=== PATIENT | female | born 1975 | race Caucasian/White ===

== ENCOUNTER 2016-07-10 12:32 | Emergency (ER) | payer OTHER ==
[~2016-07-10] VITALS: Wt 90.2 kg
[~2016-07-10 12:32] MED LIST: ACET1TAB40 PO; AZIT250T94 PO; BIRTH CONTROL PILL; BISM262O23 PO; CYCL-319 PO; FAMO-18 PO; FIORICET PO; HYDR-3498 PO; IBUP-1542 PO; OSLT75C PO; TAP5; TRAM50TA2 PO; UDROBDM PO
[2016-07-10] MEDS ORDERED: HYDROCODONE/APAP (5/325) TAB PO ONE (14:30)
[2016-07-10] MEDS ORDERED: TETRACAINE 0.5% 15 ML OPH LEFT EYE ONE (14:30)
[2016-07-10] MEDS ORDERED: TRAM50TA2 PO (14:42)
--- NOTE | 2016-07-10 14:42 | ERD ---
ER Documentation Chief Complaint Date/Time DATE: 07/10/16 TIME: 14:34 Chief Complaint left eye pain for 3 days and left side face pain. non deficit. no trauma HPI This is a 41-year-old female that presents to the ER with multiple complaints. Patient is stating that for the last 3 days she has had a left-sided facial pain. Facial pain is described as pressure-like and it is worse whenever she bends forward. She does admits to facial tingling. Patient also complained of left eyeball pain. She denies any eye trauma. She denies any eye redness or discharge. Patient states that she does have some blurry vision in the left eye. She denies any vision loss, halos, flashing lights in her vision. Patient denies any fever or chills. Patient denies any recent cough or cold symptoms. ROS 12 point review of systems was done, all negative except per HPI. Medications Home Meds Active Scripts Famotidine* (Pepcid*) 20 Mg Tablet, 20 MG PO BID for 10 Days, #20 TAB Prov:COREY COMER MD 01/18/16 Bismuth Subsalicylate* (Pepto-Bismol*) 262 Mg/15 Ml Oral.susp, 15 ML PO Q3H Y for DIARRHEA for 5 Days, ML Prov:COREY COMER MD 01/18/16 Acetaminophen with Codeine (Acetaminophen-Cod #3 Tablet) 1 Each Tablet, 1 TAB PO Q6H, #12 TAB Prov:COREY COMER MD 01/18/16 Azithromycin* (Zithromax*) 250 Mg Tablet, 250 MG PO .PorfirioPACK DIRECTED, #6 TAB TAKE 500 MG (2 TABS) THE FIRST DAY THEN 250 MG (1 TAB) DAYS 2-5 Prov:COREY COMER MD 01/18/16 Acetamin/Butalbital/Caffeine* (Fioricet*) 1 Tab Tab, 1 TAB PO Q4H Y for PAIN LEVEL 1-5, #15 TAB Prov:ELIANE ESCOBAR PA-C 12/27/15 Guaifenesin-Dextromethorphan* (Robitussin* DM) 100MG/10MG/5ML Syrup, 10 ML PO Q4H Y for COUGH for 5 Days, ML Prov:MICHELLE RODARTE SAWMILL SUPERVISOR 07/08/15 Oseltamivir Phosphate* (Tamiflu*) 75 Mg Capsule, 75 MG PO DAILY for 5 Days, CAP Prov:MICHELLE RODARTE SAWMILL SUPERVISOR 07/08/15 Ibuprofen* (Motrin*) 600 Mg Tab, 600 MG PO Q8, #10 TAB Prov:SANJAY DURON DO 05/30/15 Hydrocodone Bit-Acetaminophen* ([place]*) 5-325 Mg Tab, 1 TAB PO Q6 Y for PAIN, # 7 TAB Prov:DOMISANJAY DO 05/30/15 Cyclobenzaprine Hcl* (Cyclobenzaprine Hcl*) 10 Mg Tablet, 10 MG PO TID, #20 TAB Prov:COREY COMER MD 10/19/14 Ibuprofen* (Ibuprofen*) 600 Mg Tablet, 600 MG PO Q6H Y for PAIN AND OR ELEVATED TEMP, #30 Prov:COREY COMER MD 10/19/14 Tramadol HCl (Tramadol HCl) 50 Mg Tab, 50 MG PO Q6H Y for PAIN, #30 TAB Prov:COREY COMER MD 10/19/14 Reported Medications [ Control Pill] No Conflict Check 09/20/10 Methimazole* (Methimazole*) 5 Mg Tablet 09/20/10 Allergies Allergies: Coded Allergies: No Known Allergy (Verified , 01/18/16) PMhx/Soc History of Surgery: Yes (irradiation of thyroid, bilat cataract, APPENDECTOMY) Anesthesia Reaction: No Hx Neurological Disorder: No Hx Respiratory Disorders: No Hx Cardiac Disorders: No Hx Psychiatric Problems: No Hx Miscellaneous Medical Probl: Yes (THYROID) Hx Alcohol Use: No Hx Substance Use: No Hx Tobacco Use: No Physical Exam Vitals Vital Signs Date Time Temp Pulse Resp B/P Pulse Ox O2 Delivery O2 Flow Rate FiO2 07/10/16 12:37 97.9 72 21 142/63 98 Physical Exam GENERAL: The patient is well developed and appropriate for usual state of health , in no apparent distress. HEENT: Atraumatic. Conjunctivae are pink. Pupils equal, round, and reactive to light. Extraocular muscles are grossly intact, and non painful. there is no corneal cloudiness. no conjunctival injection or discharge. No sinus tenderness. CHEST: Clear to auscultation bilaterally. There are no rales, wheezes or rhonchi. HEART: Regular rate and rhythm. No murmurs, clicks, rubs or gallops. EXTREMITIES: Full range of motion. Normal strength. Grossly neurovascularly intact. NEURO: Alert and oriented. Cranial nerves II through XII are intact. Motor strength in all 4 extremities with 5/5 strength. Sensation grossly intact. Normal speech and gait. Negative Rhomberg. SKIN: There is no apparent rash or petechia. The skin is warm and dry. Results 24 hrs Current Medications Medications (Trade) Dose Ordered Sig/Tom Route PRN Reason Start Time Stop Time Status Last Admin Dose Admin Tetracaine HCl (Tetracaine 0.5% Oph) 1 drop ONCE ONCE LEFT EYE 07/10/16 14:30 07/10/16 14:31 DC Acetaminophen/ Hydrocodone Bitart ([place] (5/325)) 1 tab ONCE ONCE PO 07/10/16 14:30 07/10/16 14:31 DC 07/10/16 14:25 Procedures/MDM This is a 41-year-old female presents to the ER with multiple complaints. Differential Diagnosis includes but is not limited to; tension headache, migraine headache, cluster headache, sinus headache, nonspecific febrile headache, trigeminal neurologia, subdural hematoma, subarachnoid bleeding, meningitis, encephalitis, acute angle closure glaucoma, temporal arteritis, iritis, conjunctivitis. Patient is neurologically intact with no focal neurological deficits. Patient's examination was benign with no evidence of injection or clouded cornea. Patient's eye was examined with William-Pen pressure in the left eye was 24 and in the right eye 18. I doubt temporal arteritis as patient does not have any temporal pain. Patient does not have any eye trauma to suggest retinal detachment. In regards to patient's facial pain this may be trigeminal neuralgia. Patient did not have any weaknesses or asymmetries of the face. I doubt intracranial pathology. I discussed case with Dr. Contreras, patient has been to the ER multiple times and her physical examination is benign at this time. Risk of CT scan outweighs benefits at this time. Patient will be sent home with tramadol. She is to follow-up with her primary care doctor within 1-2 days she was advised to go to [facility] for further workup. Patient understands and agrees with plan. Departure Diagnosis: Primary Impression: Multiple complaints Condition: Stable INGA,NIKHIL C Jul 10, 2016 14:41
== END 2016-07-10 15:01 | disposition home or self-care (01) ==
LOC: FTE 12:32
DX: H57.12 Ocular pain, left eye (principal); R51 Headache; R20.2 Paresthesia of skin; H53.8 Other visual disturbances
CPT/HCPCS: Z7502; Z7610; 99283

== ENCOUNTER 2016-09-09 16:17 | Emergency (ER) | payer OTHER ==
[~2016-09-09] VITALS: Ht 160 cm; Wt 72.7 kg
[~2016-09-09 16:17] MED LIST changes: -FAMO-18 PO; +FAMO-96 PO; +METH-493; +NAPROSYN; +OTC EYE DROPS; -TAP5; +VICODIN
[2016-09-09 16:54] VITALS: Ht 160 cm; Wt 72.7 kg
[2016-09-09] MEDS ORDERED: HYDROCODONE/APAP (5/325) TAB PO ONE (17:30)
[2016-09-09] MEDS ORDERED: IBUPROFEN 600 MG TAB PO ONE (17:30)
--- NOTE | 2016-09-09 18:54 | RADRPT ---
PROCEDURE: XR Left Foot. CLINICAL INDICATION: Trauma. Pain. TECHNIQUE: AP, lateral and oblique views of the left foot was obtained. The images were reviewed on a PACS workstation. COMPARISON: None. FINDINGS: This minimally displaced transverse fracture of the proximal metaphysis of the proximal phalanx of t he fifth digit. Joint relationships are maintained. Bone mineralization is within normal limits. Soft tissues are unremarkable. IMPRESSION: Minimally displaced transverse fracture of the proximal metaphysis of the proximal phalanx of the fi fth digit. RPTAT: HMVK .Vasyl Pearson MD, MD Date Time Electronically viewed and signed by .Vasyl Pearson MD, on 09/09/2016 18:54 .K/
[2016-09-09] MEDS ORDERED: HYDR-906 PO (19:21)
[2016-09-09] MEDS ORDERED: IBUP-1542 PO (19:21)
--- NOTE | 2016-09-09 19:27 | ERD ---
ER Documentation Chief Complaint Date/Time DATE: 09/09/16 TIME: 19:25 Chief Complaint INCREASING LT 5TH TOE PAIN TODAY. STATES FX. HPI This 41-year-old female complains of left fifth toe pain after fracturing it 4 days ago. She was seen in another ED and prescribed tramadol but complains of severe pain. She denies any fevers, vomiting, shortness breath or chest pain. She presents on crutches and an Uriel bandage. ROS All systems reviewed and are negative except as per history of present illness. Medications Home Meds Active Scripts Ibuprofen* (Motrin*) 600 Mg Tab, 600 MG PO Q6, #15 TAB Prov:COREY COMER MD 09/09/16 Hydrocodone/Acetaminophen (Riva 5-325 Tablet) 1 Each Tablet, 1 TAB PO Q6H Y for PAIN, #15 TAB Prov:COREY COMER MD 09/09/16 Tramadol HCl (Tramadol HCl) 50 Mg Tablet, 50 MG PO Q4 Y for PAIN, #20 TAB Prov:NIKHIL XIONG 07/10/16 Famotidine* (Pepcid*) 20 Mg Tablet, 20 MG PO BID for 10 Days, #20 TAB Prov:COREY COMER MD 01/18/16 Bismuth Subsalicylate* (Pepto-Bismol*) 262 Mg/15 Ml Oral.susp, 15 ML PO Q3H Y for DIARRHEA for 5 Days, ML Prov:COREY COMER MD 01/18/16 Acetaminophen with Codeine (Acetaminophen-Cod #3 Tablet) 1 Each Tablet, 1 TAB PO Q6H, #12 TAB Prov:COREY COMER MD 01/18/16 Azithromycin* (Zithromax*) 250 Mg Tablet, 250 MG PO .ZPACK DIRECTED, #6 TAB TAKE 500 MG (2 TABS) THE FIRST DAY THEN 250 MG (1 TAB) DAYS 2-5 Prov:COREY COMER MD 01/18/16 Acetamin/Butalbital/Caffeine* (Fioricet*) 1 Tab Tab, 1 TAB PO Q4H Y for PAIN LEVEL 1-5, #15 TAB Prov:ELIANE ESCOBAR PA-C 12/27/15 Guaifenesin-Dextromethorphan* (Robitussin* DM) 100MG/10MG/5ML Syrup, 10 ML PO Q4H Y for COUGH for 5 Days, ML Prov:MICHELLE RODARTE OUTSOLE PARAFFINER 07/08/15 Oseltamivir Phosphate* (Tamiflu*) 75 Mg Capsule, 75 MG PO DAILY for 5 Days, CAP Prov:MICHELLE RODARTE NP 07/08/15 Ibuprofen* (Motrin*) 600 Mg Tab, 600 MG PO Q8, #10 TAB Prov:SANJAY DURON DO 05/30/15 Hydrocodone Bit-Acetaminophen* (Riva*) 5-325 Mg Tab, 1 TAB PO Q6 Y for PAIN, # 7 TAB Prov:DOMI,SANJAY 05/30/15 Cyclobenzaprine Hcl* (Cyclobenzaprine Hcl*) 10 Mg Tablet, 10 MG PO TID, #20 TAB Prov:COREY COMER MD 10/19/14 Ibuprofen* (Ibuprofen*) 600 Mg Tablet, 600 MG PO Q6H Y for PAIN AND OR ELEVATED TEMP, #30 Prov:COREY COMER MD 10/19/14 Tramadol HCl (Tramadol HCl) 50 Mg Tab, 50 MG PO Q6H Y for PAIN, #30 TAB Prov:COREY COMER MD 10/19/14 Reported Medications [ Control Pill] No Conflict Check 09/20/10 Methimazole* (Methimazole*) 5 Mg Tablet 09/20/10 Allergies Allergies: Coded Allergies: No Known Allergy (Verified , 09/09/16) PMhx/Soc History of Surgery: Yes (irradiation of thyroid, bilat cataract, APPENDECTOMY) Anesthesia Reaction: No Hx Neurological Disorder: No Hx Respiratory Disorders: No Hx Cardiac Disorders: No Hx Psychiatric Problems: No Hx Miscellaneous Medical Probl: Yes (THYROID) Hx Alcohol Use: Yes (occassional) Hx Substance Use: No Hx Tobacco Use: No Physical Exam Vitals Vital Signs Date Time Temp Pulse Resp B/P Pulse Ox O2 Delivery O2 Flow Rate FiO2 09/09/16 16:54 99.5 86 20 128/59 96 Physical Exam Const: [] Alert, [id number] per Head: Atraumatic Eyes: Normal Conjunctiva ENT: Normal External Ears, Nose and Mouth. Neck: Full range of motion..~ No meningismus. Resp: Clear to auscultation bilaterally Cardio: Regular rate and rhythm, no murmurs Abd: Soft, non tender, non distended. Normal bowel sounds Skin: No petechiae or rashes Back: No midline or flank tenderness Ext: No cyanosis, or edema there is some tenderness and bruising around the base of the left fifth toe. There is no appreciable neurologic or tendon deficits. There is no deformities. There is no evidence of ischemia and Refill is less than 2 seconds Neur: Awake and alert Psych: Normal Mood and Affect Results 24 hrs Current Medications Medications (Trade) Dose Ordered Sig/Tom Route PRN Reason Start Time Stop Time Status Last Admin Dose Admin Acetaminophen/ Hydrocodone Bitart (Riva (5/325)) 1 tab ONCE ONCE PO 09/09/16 17:30 09/09/16 17:31 DC 09/09/16 17:29 Ibuprofen (Motrin) 600 mg ONCE ONCE PO 09/09/16 17:30 09/09/16 17:31 DC 09/09/16 17:28 Procedures/MDM X-ray left foot 3V Interpreted by me: Bones: There is a fracture of the left of the base fifth toe. Joints: No dislocation Foreign body: None. Impression-minimally displaced proximal fifth digit fracture. Patient was placed in a left fifth toe danielle tape given in postop shoe. Patient is neurovascular intact after danielle tape and postop shoe. Patient was discharged home a short course of Riva and ibuprofen instructions for ice and elevation instruction to follow-up with orthopedist. She was advised he may need authorization for primary care doctor for orthopedist visit. She should return sooner for fevers, redness, new worsening symptoms. Departure Diagnosis: Primary Impression: Toe fracture, left Encounter type: initial encounter Toe: unspecified toe Fracture type: closed Fracture alignment: nondisplaced Qualified Code: S92.912A - Closed nondisplaced fracture of phalanx of toe of left foot, unspecified toe, initial encounter Condition: Stable Patient Instructions: Finger and Toe Fractures (Broken Finger or Toe) Referrals: TAMARA STACK MD Additional Instructions: Va al baltazar doctor/ specialista para mas evaluacon en el proximo semana. posiblemente necesita autorizado de baltazar doctor primario para specialista. Regresa para fiebre, o mas o nueva simptomas. COREY COMER MD Sep 09, 2016 19:27
[2016-09-09 20:00] VITALS: BP 135/70; PULSE 61; RESP 20; TEMP 99.5
== END 2016-09-09 20:00 | disposition home or self-care (01) ==
LOC: FTE 16:17
DX: S92.512A Displaced fracture of proximal phalanx of left lesser toe(s), initial encounter for closed fracture (principal); X58.XXXA Exposure to other specified factors, initial encounter; Y92.9 Unspecified place or not applicable
CPT/HCPCS: 73630; Z7502; Z7610

== ENCOUNTER 2017-06-18 11:22 | Emergency (ER) | END 2017-06-18 15:40 | disposition home or self-care (01) ==

== ENCOUNTER 2017-09-09 09:07 | Emergency (ER) | END 2017-09-09 13:26 | disposition home or self-care (01) ==

== ENCOUNTER 2018-02-02 13:41 | Emergency (ER) | END 2018-02-02 19:38 | disposition home or self-care (01) ==